=== PATIENT | female | born 1995 | race Caucasian/White ===

== ENCOUNTER 2019-10-04 10:01 | Emergency (ER) | payer MEDICAID ==
[~2019-10-04] VITALS: Ht 162.6 cm; Wt 56.4 kg
[2019-10-04 11:07] VITALS: BP 96/60
[2019-10-04] MEDS ORDERED: CIPR10DR RIGHT EAR (11:28)
[2019-10-04] MEDS ORDERED: AMOX-422 PO (11:28)
== END 2019-10-04 11:36 | disposition home or self-care (01) ==
LOC: ER 10:02
DX: H92.01 Otalgia, right ear (principal); L03.119 Cellulitis of unspecified part of limb; F17.200 Nicotine dependence, unspecified, uncomplicated; F15.90 Other stimulant use, unspecified, uncomplicated; Z79.899 Other long term (current) drug therapy
CPT/HCPCS: 99283

== ENCOUNTER 2019-10-31 08:29 | Emergency (ER) | payer MEDICAID ==
[~2019-10-31] VITALS: Ht 162.6 cm; Wt 61.4 kg
[2019-10-31] MEDS ORDERED: NEOM10DR45 RIGHT EAR (08:47)
[2019-10-31] MEDS ORDERED: AMOX500C2 PO (08:47)
[2019-10-31 09:06] VITALS: BP 109/66
== END 2019-10-31 09:08 | disposition home or self-care (01) ==
LOC: ER 08:30
DX: H92.03 Otalgia, bilateral (principal); F15.10 Other stimulant abuse, uncomplicated; Z79.899 Other long term (current) drug therapy
CPT/HCPCS: 99283

== ENCOUNTER 2019-11-08 11:52 | Emergency (ER) | payer MEDICAID ==
[~2019-11-08] VITALS: Ht 162.6 cm; Wt 59.1 kg
[~2019-11-08 11:52] MED LIST: AMOX500C2 PO
[2019-11-08 12:16] VITALS: BP 108/68
== END 2019-11-08 14:37 | disposition left against medical advice (07) ==
LOC: ER 11:52
DX: H92.02 Otalgia, left ear (principal); Z53.21 Procedure and treatment not carried out due to patient leaving prior to being seen by health care provider

== ENCOUNTER → 2020-11-23 | Emergency (ER) | payer MEDICAID | END | disposition left against medical advice (07) | LOC: ER 02:31 | DX: H92.20 Otorrhagia, unspecified ear (principal); Z53.21 Procedure and treatment not carried out due to patient leaving prior to being seen by health care provider ==